=== PATIENT | male | born 1945 | race Caucasian/White ===

== ENCOUNTER 2021-07-30 01:01 | Inpatient (IN) | payer MEDICARE, MEDICAID ==
[~2021-07-30] VITALS: Ht 182.9 cm; Wt 78.0 kg
--- NOTE | 2021-07-30 01:38 | NUR ---
Hero holland in [facility] - 07/30/21 at 0229 by SONIA CALLED THE FACILITY MULTIPLE TIMES TO FOLLOW WITH WITH NURSE NEELAM RN REGARDING PT. AT FIRST WAS PLACED ON HOLD UNTIL IT GOT BUSY THEN NO ASNWER AFTER MULTIPLE CALL ATTEMPTS
[2021-07-30] MEDS ORDERED: KETOROLAC TROMETHAMINE INJ 30 MG/ML VIAL ONE (01:49)
[2021-07-30] MEDS ORDERED: KETOROLAC TROMETHAMINE INJ 30 MG/ML VIAL IV ONE (02:00)
[2021-07-30 02:10] LABS: BASOPHILS # (AUTO) 0.1 K/uL (0.0-0.2); BASOPHILS % (AUTO) 0.6 % (0.0-2.0); EOSINOPHILS % (AUTO) 2.2 % (0.0-6.0); HEMATOCRIT 29 % (39-51); HEMOGLOBIN 9.9 g/dL (13.5-17.5); MEAN CORPUSCULAR HGB CONC 34 g/dl (31.0-36.0); MEAN CORPUSCULAR VOLUME 89 fL (80-96); MONOCYTES # (AUTO) 0.7 K/uL (0.1-1.30); NEUTROPHILS # (AUTO) 9.1 K/uL (1.8-8.9); NEUTROPHILS % (AUTO) 82.2 % (43.0-81.0); PLATELET COUNT (AUTO) 293 K/uL (150-450); RED BLOOD CELL COUNT(AUTO) 3.25 MIL/uL (4.5-6.0); WHITE BLOOD COUNT (AUTO) 11.1 K/uL (4.3-11.0)
[2021-07-30] MEDS ORDERED: LIDOCAINE 2% JEL UROJET 10 ML MM ONE (02:15)
[2021-07-30 02:25] LABS: ALANINE AMINOTRANSFERASE 25 U/L (12-78); ALBUMIN 3.3 g/dL (3.4-5.0); ALKALINE PHOSPHATASE 90 U/L (46-116); ASPARTATE AMINOTRANSFERASE 28 U/L (15-37); BILIRUBIN,DIRECT 0.1 mg/dL (0.0-0.2); BILIRUBIN,TOTAL 0.3 mg/dL (0.2-1.0); CALCIUM, SERUM 8.6 mg/dL (8.5-10.1); CARBON DIOXIDE 21 mmol/L (21-32); CREATININE 1.4 mg/dL (0.6-1.3); GLUCOSE 94 mg/dL (74-106); UREA NITROGEN, BLOOD 20 mg/dL (7-18)
[2021-07-30 02:29] LABS: CHLORIDE 88 mmol/L (98-107); POTASSIUM 3.9 mmol/L (3.5-5.1)
--- NOTE | 2021-07-30 02:29 | NUR ---
URINE COLLECTED AND SENT TO LAB
[2021-07-30 02:34] LABS: SODIUM SERUM 120 mmol/L (136-145)
[2021-07-30 02:55] LABS: BILIRUBIN,URINE NEGATIVE (NEGATIVE); COLOR,URINE YELLOW (YELLOW); LEUKOCYTE ESTERASE ,URINE LARGE (NEGATIVE); NITRITE, URINE POSITIVE (NEGATIVE); PROTEIN,URINE 30 mg/dl (NEGATIVE); UGLUCOSE NEGATIVE (NEGATIVE); UROBILINOGEN,URINE 0.2 EU/dL (0.2)
--- NOTE | 2021-07-30 04:25 | NUR ---
PAGED ANASTASIA CAZARES
[2021-07-30] MEDS ORDERED: CEFTRIAXONE 1GM BAG (ER ONLY) 1 GM/50 ML PIGGYBACK IV ONE (04:30)
[2021-07-30] MEDS ORDERED: CEFTRIAXONE 1GM BAG (ER ONLY) 50 ML IV ONE (04:39)
--- NOTE | 2021-07-30 04:40 | NUR ---
ANASTASIA CAZARES ON PHONE WITH MAYA LUNDBERG
[2021-07-30] MEDS ORDERED: MORPHINE SULFATE INJ 2 MG/ML DISP.SYRIN ONE (04:46)
[2021-07-30] MEDS ORDERED: MORPHINE SULFATE INJ 2 MG/ML DISP.SYRIN IV ONE (05:00)
[2021-07-30] MEDS ORDERED: ICOS1CAP PO (06:06)
[2021-07-30] MEDS ORDERED: HYDR-500 PO (06:06)
[2021-07-30] MEDS ORDERED: SERT100T12 PO (06:06)
[2021-07-30] MEDS ORDERED: LISI20TA30 PO (06:06)
[2021-07-30] MEDS ORDERED: ALFU10TA10 PO (06:06)
[2021-07-30] MEDS ORDERED: QUET100T PO (06:06)
[2021-07-30] MEDS ORDERED: TAMS-12 PO (06:06)
[2021-07-30] MEDS ORDERED: ZOLP10TA2 PO (06:06)
[2021-07-30] MEDS ORDERED: GEMF600T90 PO (06:06)
[2021-07-30] MEDS ORDERED: MIRT-90 PO (06:06)
[2021-07-30] MEDS ORDERED: PROP40TA7 PO (06:06)
--- NOTE | 2021-07-30 06:38 | NUR ---
ROOM ASSIGNMENT: [id number] TELE
--- NOTE | 2021-07-30 06:42 | NUR ---
REPORT GIVEN TO DAVID
--- NOTE | 2021-07-30 07:35 | NUR ---
PRESSURISED CONTAINER FILLER NOTES RECEIVED PT FROM E.R. STAFF [facility]IA [facility], ASSISTED TO BED, MADE COMFORTABLE, PT IS AWAKE AND ALERT, RESPIRATIONS NORMAL, NOT IN DISTRESS, FARSI SPEAKING BUT UNDERSTANDS AND SPEAKS SIMPLE BERMUDIAN, ROOM SET UP ORIENTATION PROVIDED, VERBALIZED UNDERSTANDING, WITH COMPLAINT OF SOME PAIN AT THE LOWER ABDOMEN, KEPT PT COMFORTABLE, AWAITING ADMITTING ORDERS FROM MD.
[2021-07-30 08:00] VITALS: BP 141/65
[2021-07-30 08:24] LABS: BACTERIA,URINE 1+ /HPF (None Seen); SQUAMOUS EPITHELIAL CELL,UR Few /HPF (None Seen); WBC,URINE TOO NUMEROUS TO COUN /HPF (0-3)
[2021-07-30] MEDS: IV NS 0.9% 1,000 ML IV PRN (10:59)
[2021-07-30] MEDS: GEMFIBROZIL 600 MG TABLET PO SCH ×3 (11:00→16:46)
[2021-07-30] MEDS ORDERED: MAG HYDROX/AL HYDROX/SIMETH 30 ML UDC PO PRN (11:00)
[2021-07-30] MEDS ORDERED: ZOLPIDEM TARTRATE 10 MG TABLET PO PRN (11:00)
[2021-07-30] MEDS ORDERED: ACETAMINOPHEN 325 MG TABLET PO PRN (11:00)
[2021-07-30] MEDS ORDERED: HYDROMORPHONE 1 MG/1 ML DISP.SYRIN IV PRN (11:00)
[2021-07-30] MEDS ORDERED: ONDANSETRON HCL/PF 4 MG/2 ML VIAL IVP PRN (11:00)
[2021-07-30] MEDS ORDERED: Z GUARD REMEDY 2 OZ OINT TP PRN (11:00)
[2021-07-30] MEDS ORDERED: ZOLPIDEM TARTRATE 5 MG TABLET PO PRN (11:00)
[2021-07-30] MEDS ORDERED: MAGNESIUM HYDROXIDE 30 ML UDC PO PRN (11:00)
[2021-07-30] MEDS: SERTRALINE HCL 50 MG TABLET PO SCH ×2 (11:29→12:16)
--- NOTE | 2021-07-30 11:58 | NUR ---
EXECUTIVE DIRECTOR CONTRACT SHOP NOTES LIMITED SKIN ASSESSMENT DONE PT PREFERS TO WEAR HIS JACKET AT THIS TIME, OTHERWISE, NO SKIN ISSUES IDENTIFIED.
[2021-07-30 13:09] LABS: CALCIUM, SERUM 8.5 mg/dL (8.5-10.1); CARBON DIOXIDE 25 mmol/L (21-32); CHLORIDE 90 mmol/L (98-107); CREATININE 1.4 mg/dL (0.6-1.3); GLUCOSE 114 mg/dL (74-106); POTASSIUM 3.4 mmol/L (3.5-5.1); SODIUM SERUM 123 mmol/L (136-145); UREA NITROGEN, BLOOD 20 mg/dL (7-18)
[2021-07-30 16:00] VITALS: BP 152/74
[2021-07-30] MEDS: PROPRANOLOL HCL 40 MG TABLET PO SCH (16:47)
[2021-07-30] MEDS ORDERED: POTASSIUM CHLORIDE 20 MEQ TAB.PRT.SR PO ONE (17:00)
--- NOTE | 2021-07-30 18:08 | NUR ---
MACHINE LONG GOODS HELPER NOTES PT IN BED, AWAKE, ALERT AND VERBALLY RESPONSIVE, WITH SLIGHT COMPLAINT OF PAIN TO LOWER ABDOMEN BUT REFUSES PAIN MEDS AT THIS TIME, KEPT ULTRASONIC TESTER BED, ASSISTED WITH MEALS, SEEN BY DR. ZUNIGA AND DR. BURTON TODAY, IV FLUIDS INFUSING WELL, F/C DRAINING WELL WITH CLOUDY YELLOW URINE, PM CARE PROVIDED, ALL NEEDS ATTENDED.
--- NOTE | 2021-07-30 19:30 | NUR ---
Patient is A&Ox3. In room eating dinner still. calm and cooperative. Denies any needs at this time. No signs of distress. slightly cloudy yellow urine draining to f/c. Safety measures in place. Will continue to monitor pt.
[2021-07-30 20:00] VITALS: BP 126/58
[2021-07-30] MEDS: QUETIAPINE FUMARATE 100 MG TABLET PO SCH (21:03)
[2021-07-30] MEDS: MIRTAZAPINE 15 MG TABLET PO SCH (21:03)
[2021-07-30] MEDS: TAMSULOSIN 0.4 MG CAP.SR.24H PO SCH (21:03)
[2021-07-31] VITALS (7 sets, daily range): BP systolic 120–148; BP diastolic 45–75
[2021-07-31] MEDS: IV NS 0.9% 1,000 ML IV PRN (02:42)
[2021-07-31] MEDS: CEFTRIAXONE 1 G in IV D5W 50 ML IV SCH (04:58)
--- NOTE | 2021-07-31 06:26 | NUR ---
RN CLOSING NOTES Patient stable overnight. Tolerating IV ABX well. Urine looks much more clear. 1550cc output throughout shift. Mentation at [facility]. A&Ox3. SR in 60s on monitor, sometimes going into sinus arrhythmia for short periods of time. LFA #20G infusing NS at 75cc/hr -no signs of infiltration or phlebitis. VSS.
--- NOTE | 2021-07-31 07:20 | NUR ---
PRODUCTION ANALYST NOTES RECEIVED PT IN BED, AWAKE AND VERBALLY RESPONSIVE. ALERT AND ORIENTED X3, FARSI-SPEAKING, UNDERSTANDS SOME NEPALI AND ABLE TO MAKE NEEDS KNOWN. RESPIRATIONS NORMAL AND UNLABORED, ON ROOM AIR. IV LINE INTACT AND PATENT. FINNEY CATH IN PLACE, DRAINING YELLOW-COLORED URINE. ABLE TO DRINK WATER INDEPENDENTLY. ON TELE MONITORING, READING OF SR W/ OCCASIONAL PAC, HR IN THE 60'S-70'S. SAFETY MEASURES IN PLACE. WILL CONTINUE TO MONITOR.
[2021-07-31] MEDS: GEMFIBROZIL 600 MG TABLET PO SCH ×2 (08:15→17:16)
[2021-07-31] MEDS: PROPRANOLOL HCL 40 MG TABLET PO SCH ×2 (08:16→17:16)
[2021-07-31] MEDS: SERTRALINE HCL 50 MG TABLET PO SCH (08:16)
[2021-07-31] MEDS: LISINOPRIL (20MG) 20 MG TABLET PO SCH (08:16)
[2021-07-31 08:56] LABS: BASOPHILS % (AUTO) 0.7 % (0.0-2.0); HEMATOCRIT 28 % (39-51); HEMOGLOBIN 9.4 g/dL (13.5-17.5); LYMPHOCYTES # (AUTO) 1.6 K/uL (0.8-4.8); LYMPHOCYTES % (AUTO) 25.4 % (20.0-44.0); MEAN CORPUSCULAR HGB CONC 33 g/dl (31.0-36.0); MEAN CORPUSCULAR VOLUME 90 fL (80-96); MONOCYTES # (AUTO) 0.7 K/uL (0.1-1.30); MONOCYTES % (AUTO) 10.6 % (2.0-12.0); NEUTROPHILS # (AUTO) 3.5 K/uL (1.8-8.9); NEUTROPHILS % (AUTO) 56.3 % (43.0-81.0); PLATELET COUNT (AUTO) 294 K/uL (150-450); RED BLOOD CELL COUNT(AUTO) 3.12 MIL/uL (4.5-6.0); WHITE BLOOD COUNT (AUTO) 6.2 K/uL (4.3-11.0)
[2021-07-31] MEDS ORDERED: Medication Not On Formulary EA (Alfuzosin Hcl 10 MG) PO SCH (09:00)
[2021-07-31 09:17] LABS: CALCIUM, SERUM 8.7 mg/dL (8.5-10.1); CREATININE 1.2 mg/dL (0.6-1.3); MAGNESIUM 1.8 mg/dL (1.8-2.4); PHOSPHORUS 3.9 mg/dL (2.5-4.9); POTASSIUM 3.8 mmol/L (3.5-5.1)
[2021-07-31] MEDS ORDERED: IV NS 0.9% 1,000 ML IV PRN (09:28)
[2021-07-31 09:36] LABS: THYROID STIMULATING HORMONE 2.79 uIU/mL (0.358-3.74)
--- NOTE | 2021-07-31 09:37 | NUR ---
RN NOTES PATIENT SEEN BY TANISHA VILLANUEVA NEPHRO, W/ ORDER TO DECREASE IVF RATE TO 50CC/HR.
--- NOTE | 2021-07-31 12:20 | NUR ---
RN NOTES PATIENT SEEN BY DR. JOSUE FOR UROLOGY CONSULT.
--- NOTE | 2021-07-31 15:00 | NUR ---
RN NOTES PATIENT SEEN BY PENNY ZUNIGA NP; INFORMED ABOUT PLAN OF CARE.
--- NOTE | 2021-07-31 18:43 | NUR ---
RN NOTES PT IN BED, AWAKE AND VERBALLY RESPONSIVE, EATING DINNER AT THIS TIME. ALERT AND ORIENTED X3, FARSI-SPEAKING, UNDERSTANDS SOME YAKUT, ABLE TO MAKE NEEDS KNOWN. BREATHING EVEN AND UNLABORED, CONTINUES ON ROOM AIR. IV LINE INTACT AND PATENT, IVF INFUSING WELL. FINNEY CATH IN PLACE, DRAINING YELLOW-COLORED URINE. SAFETY MEASURES MAINTAINED. WILL ENDORSE TO CARAMEL CANDY MAKER HELPER RN FOR YOLANDA.
--- NOTE | 2021-07-31 19:33 | NUR ---
RN NOTES RECEIVED PATIENT IN BED, ALERT/ORIENTED X4, FARSI SPEAKIING WITH LITTLE L[place]OURGISH, EATING DINNER, ROOM AIR, NO COMPLAIN OF PAIN, MED-SURG NOW, FINNEY CATHETER DRAINING, LFA #20 NS AT 50 ML/HR, KEPT SAFE, CALL LIGHT WITHIN REACH.
[2021-07-31] MEDS: MIRTAZAPINE 15 MG TABLET PO SCH (21:08)
[2021-07-31] MEDS: TAMSULOSIN 0.4 MG CAP.SR.24H PO SCH (21:08)
[2021-07-31] MEDS: QUETIAPINE FUMARATE 100 MG TABLET PO SCH (21:08)
[2021-08-01] MEDS: CEFTRIAXONE 1 G in IV D5W 50 ML IV SCH (04:40)
[2021-08-01 06:49] LABS: CALCIUM, SERUM 8.8 mg/dL (8.5-10.1); CREATININE 1.1 mg/dL (0.6-1.3); POTASSIUM 3.7 mmol/L (3.5-5.1)
--- NOTE | 2021-08-01 06:53 | NUR ---
Alert/oriented x4, Farsi speaking, Malian, room air, no complain of groin pain, complained of neck pain, given Tylenol 650 mg PO with good relief, layton catheter for UTI and urinary retention. Urine output is clear yellow, NS at 50 ml/hr, Dr. Gill, nephrologis following. Started on Flomax, Rocephin for UTI, per plan of care, continue IVF, keep layton catheter, antibiotics PO 7-10 days.
--- NOTE | 2021-08-01 07:35 | NUR ---
RN OPENING NOTE RECEIVED PATIENT IN BED. A/O X3. ON ROOM AIR, TOLERATING WELL. DENIES SOB. IN NO APPARENT DISTRESS. IV ACCESS ON L FA #20 G, NS RUNNING AT 50 ML/HR, INTACT AND PATENT. FINNEY CATHETER IN PLACE DRAINING YELLOW URINE. SAFETY MEASURES MAINTAINED. BED IN LOWEST POSITION, BRAKES LOCKED. SIDE RAILS UP X2. CALL LIGHT WITHIN REACH. WILL CONTINUE PLAN OF CARE.
[2021-08-01] MEDS: GEMFIBROZIL 600 MG TABLET PO SCH ×2 (08:27→16:45)
[2021-08-01] MEDS: SERTRALINE HCL 50 MG TABLET PO SCH (08:27)
[2021-08-01] MEDS: PROPRANOLOL HCL 40 MG TABLET PO SCH ×2 (08:27→16:45)
[2021-08-01] MEDS: LISINOPRIL (20MG) 20 MG TABLET PO SCH (08:28)
--- NOTE | 2021-08-01 18:22 | NUR ---
RN CLOSING NOTE PATIENT IN BED. A/O X3. ON ROOM AIR, TOLERATING WELL. DENIES SOB. NO S/S OF RESPIRATORY DISTRESS. IV ACCESS ON L FA #20 G, NS RUNNING AT 50 ML/HR, INTACT AND PATENT. FINNEY CATHETER IN PLACE DRAINING YELLOW URINE. DUE MEDS GIVEN ORDERED. ALL NEEDS HAVE BEEN MET AND ATTENDED. SAFETY MEASURES MAINTAINED. BED IN LOWEST POSITION, BRAKES LOCKED. SIDE RAILS UP X2. KEPT CALL LIGHT WITHIN REACH. WILL ENDORSE CONTINUITY OF CARE TO INCOMING SHIFT.
--- NOTE | 2021-08-01 19:15 | NUR ---
MS RN OPENING NOTES RECEIVED PATIENT LAYING AWAKE IN BED. A/O X3. PATIENT WITH REGULAR AND UNLABORED BREATHING ON ROOM AIR, TOLERATED WELL. NO SIGNS AND SYMPTOMS OF DISTRESS NOTED. NO COMPLAINS OF PAIN AT THIS TIME. IV ACCESS LFA G#20 RUNNING NS @ 50 ML/HR. ACCESS PATENT AND INTACT. SAFETY PRECAUTIONS ENFORCED BED LOCKED AND AT LOWEST POSITION. SIDERAILS UP X2. CALL LIGHT WITHIN REACH AT ALL TIMES. WILL CONTINUE TO MONITOR PATIENT.
[2021-08-01 20:00] VITALS: BP 113/50
[2021-08-01] MEDS: QUETIAPINE FUMARATE 100 MG TABLET PO SCH (23:11)
[2021-08-01] MEDS: MIRTAZAPINE 15 MG TABLET PO SCH (23:11)
[2021-08-01] MEDS: TAMSULOSIN 0.4 MG CAP.SR.24H PO SCH (23:11)
[2021-08-02] MEDS: CEFTRIAXONE 1 G in IV D5W 50 ML IV SCH (04:31)
[2021-08-02 06:38] LABS: CALCIUM, SERUM 8.4 mg/dL (8.5-10.1); POTASSIUM 3.9 mmol/L (3.5-5.1)
--- NOTE | 2021-08-02 07:25 | NUR ---
MS RN OPENING NOTES RECEIVED Pt AWAKE IN BED, A/O X3. Pt IS ON ROOM AIR. BREATHING IS EVEN AND UNLABORED, TOLERATING WELL. NO SIGNS AND SYMPTOMS OF DISTRESS NOTED AT THIS TIME. NO COMPLAINS OF PAIN AT THIS TIME. IV ACCESS L FA 20g RUNNING NS @ 50 ML/HR, IT IS PATENT AND INTACT. SAFETY PRECAUTIONS ENFORCED: BED IS LOCKED AND IN LOWEST POSITION. SIDE RAILS UP X2. CALL LIGHT AND BEDSIDE TABLE ARE WITHIN REACH AT ALL TIMES. WILL CONTINUE TO MONITOR THROUGHOUT.
--- NOTE | 2021-08-02 07:36 | NUR ---
MS RN CLOSING NOTES PATIENT STILL LAYING AWAKE IN BED. A/O X3. PATIENT WITH REGULAR AND UNLABORED BREATHING ON ROOM AIR, TOLERATED WELL. NO SIGNS AND SYMPTOMS OF DISTRESS NOTED. NO COMPLAINS OF PAIN AT THIS TIME. IV ACCESS LFA G#20 RUNNING NS @ 50 ML/HR. ACCESS PATENT AND INTACT. SAFETY PRECAUTIONS ENFORCED BED LOCKED AND AT LOWEST POSITION. SIDERAILS UP X2. CALL LIGHT WITHIN REACH AT ALL TIMES. WILL ENDORSE YOLANDA TO DAY SHIFT NURSE.
[2021-08-02 08:12] VITALS: BP 112/56
[2021-08-02] MEDS: LISINOPRIL (20MG) 20 MG TABLET PO SCH (09:00)
[2021-08-02] MEDS: GEMFIBROZIL 600 MG TABLET PO SCH (09:23)
[2021-08-02] MEDS: SERTRALINE HCL 50 MG TABLET PO SCH (09:24)
[2021-08-02 09:25] VITALS: BP 112/56
[2021-08-02] MEDS: PROPRANOLOL HCL 40 MG TABLET PO SCH (09:25)
--- NOTE | 2021-08-02 09:26 | NUR ---
MS RN NOTES- BP MED HELP BP THIS AM WAS 112/56 AND HR IS 63.
[2021-08-02] MEDS ORDERED: AMOX-430 PO (12:00)
--- NOTE | 2021-08-02 15:29 | NUR ---
MS RN NOTES: DISCHARGE Pt WAS DISCHARGED HOME. A/OX3, BREATHING IS EVEN AND UNLABORED ON ROOM AIR. NO COMPLAINTS OF PAIN MADE OR SIGNS OF DISTRESS NOTICED. Pt HAD ALL OF HIS BELONGINGS. HE WENT HOME [facility]IA [facility].
== END 2021-08-02 15:15 | disposition home or self-care (01) | DRG 698 ==
LOC: ER 01:05 → TELE 07:05 → MED 07-31 15:50
PROVIDERS: ADMIT Nurse Practitioner Acute Care; ATTEND Nurse Practitioner Acute Care
DX: N32.0 Bladder-neck obstruction (principal); N17.0 Acute kidney failure with tubular necrosis; E87.1 Hypo-osmolality and hyponatremia; N13.6 Pyonephrosis; N30.00 Acute cystitis without hematuria; N45.1 Epididymitis; N40.0 Benign prostatic hyperplasia without lower urinary tract symptoms; N45.3 Epididymo-orchitis; Z20.822 Contact with and (suspected) exposure to COVID-19; B96.89 Other specified bacterial agents as the cause of diseases classified elsewhere; E78.5 Hyperlipidemia, unspecified; E86.1 Hypovolemia; F32.A Depression, unspecified; Z79.899 Other long term (current) drug therapy; F39 Unspecified mood [affective] disorder; N13.9 Obstructive and reflux uropathy, unspecified
CPT/HCPCS: 36415; 72192-TC; 76870-TC; 80048-TC; 80061-TC; 80076-TC; 81001; 83735-TC; 84100-TC; 84300-TC; 84443-TC; 85025-TC; 85730-TC; 87081-TC; 87086-TC; 87186-TC; 97112-TC; 97116-TC; 97530-TC; C9803; G0378; J0696; J1885; J2270; J3490; J7030; J7060